=== PATIENT | male | born 1955 | race Caucasian/White ===

== ENCOUNTER 2016-10-29 05:01 | Observation (INO) | payer OTHER ==
--- NOTE | ~2016-10-29 | HP ---
History And Physical [address] [place]. [address] NAME: CATHERINE PINEDA : 57 STATUS : ADM Ariadne PAT#: [id number] AGE: 61 ADM/REG DATE : 10/29/16 MR#: [id number] REPORT SERV DATE: 10/29/16 DICTATED BY: RAJANI WU DATE: 10/29/16 REPORT STATUS : Draft TRANSCRIBED BY: MODItzel DATE: 10/29/16 DATE OF ADMISSION: 10/29/2016 PAIN SPECIALIST: Jose Alberto Chavez M.D. CHIEF COMPLAINT: Dyspnea on exertion and chest pain. HISTORY OF PRESENT ILLNESS: This is a 61-year-old male with cardiac risk factors of hypertension, hyperlipidemia, and type 2 diabetes mellitus, who states a couple of days history of increased shortness of breath with activities such as walking. This is also accompanied with chest tightness. Chest tightness will develop while he is walking or shortly thereafter with radiation to the left shoulder. Yesterday, he states worsening shortness of breath with his regular activities as well as onset of chest tightness in the afternoon. When this did not resolve, he came to the Emergency Department early this morning around 0430 hours. He was given a full dose aspirin and some Percocet for his chronic back pain. His chest tightness has since resolved. The patient denies any recent fever, cough, or chills. Denies PND or orthopnea. He does admit to snoring and not sleeping well at night. Chronic mild edema to the bilateral lower extremity for several years. The patient also has chronic back pain limiting his activities, although he does have a recumbent bicycle that he has not been using regularly. HOME MEDICATIONS: Xanax 0.5 q.i.d. p.r.n., Zetia 10 daily, Neurontin 800 one tablet up to six times a day as needed, lisinopril 40 daily, Glucophage 1000 mg b.i.d., and Endocet 10/325 t.i.d. p.r.n. ALLERGIES: NO KNOWN DRUG ALLERGIES. PAST MEDICAL HISTORY: 1. Hypertension. 2. Mixed hyperlipidemia. 3. Fatty liver disease. 4. Anxiety. 5. Degenerative disk disease and bilateral lower extremity neuropathy. 6. Morbid obesity. 7. Type 2 diabetes mellitus. PAST SURGICAL HISTORY: 1. Cholecystectomy in 1990. 2. Right total knee replaced in 2000. 3. Right femur ORIF in 1978. SOCIAL HISTORY: The patient is . 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 He smoked approximately five years as a teenager. Denies alcohol or illicit drug use. FAMILY HISTORY: Father with coronary artery disease, at age 90. Mother with diabetes. History And Physical [address] [address] NAME: CATHERINE PINEDA : 57 STATUS : ADM Ariadne PAT#: [id number] AGE: 61 ADM/REG DATE : 10/29/16 MR#: [id number] REPORT SERV DATE: 10/29/16 DICTATED BY: RAJANI WU DATE: 10/29/16 REPORT STATUS : Draft TRANSCRIBED BY: ABHINAV DATE: 10/29/16 No premature cardiovascular disease among his first-degree relatives. REVIEW OF SYSTEMS: Negative except as indicated above. PHYSICAL EXAMINATION: VITAL SIGNS: Blood pressure 150/79, heart rate 50 to 60, temperature 97.7, and pulse oximetry 95% on room air. BMI of 41.4. GENERAL: Well-developed, well-nourished, in no acute distress. HEENT: Anicteric. Normal EOM. Head normocephalic. PERRLA, no xanthelasma. NECK: Supple. No JVD. Carotids normal without bruits. LUNGS: Clear to auscultation bilaterally anterior and posterior. Respirations even and unlabored. CARDIAC: S1, S2 regular rate and rhythm. No murmurs, rubs, or gallops. No chest wall tenderness. ABDOMEN: Normal bowel sounds. Soft and nontender to palpation. No masses or organomegaly. EXTREMITIES: 1+ edema to the bilateral lower extremities. SKIN: Warm and dry. Normal turgor. No pallor or cyanosis. MUSCULOSKELETAL: Moving all extremities x4. Normal muscle strength. NEURO/PSYCH: Alert and oriented with appropriate affect. LABORATORY DATA: White blood count 7.3, hemoglobin 14.3, and hematocrit 42.0. D-dimer 0.40. Sodium 142, potassium 4.1, BUN 14, and creatinine 0.8. Troponin less than 0.02. Chest x- ray shows shallow inspiration, but no acute cardiopulmonary processes. EKG interpreted by myself indicates normal sinus rhythm with interventricular conduction delay and left axis deviation. ASSESSMENT/PLAN: 1. Dyspnea on exertion in a 61-year-old male with a negative D-dimer and normal chest x- ray. No symptoms of cough and no signs of fluid overload on examination. Consider possible anginal equivalent versus exercise intolerance in this gentleman who is morbidly obese. 2. Midsternal chest pain, seems to have an exertional component. Initial troponin is negative as well as EKG. Cardiac risk factors include hypertension, hyperlipidemia, type 2 diabetes mellitus. Recommend a cardiac PET stress test today first to differentiate if any ischemia. This will be obtained if second troponin is negative. 3. Type 2 diabetes mellitus, on metformin. Element of neuropathy as well with his diabetes. We will hold his metformin while here, institute level 1 sliding scale insulin protocol. Reinforce diabetic diet and weight loss. 4. Hypertension with borderline elevated blood pressures. We will continue to monitor. Continue home medications. 5. Mixed hyperlipidemia. The patient has reportedly not on a statin secondary to history of fatty liver disease. We will continue Zetia. 6. Morbid obesity with a BMI of 41. Counseled the patient on daily exercise as well as dietary changes. Also, consider outpatient sleep study through his primary care physician. History And Physical [address] [place]. [address] NAME: CATHERINE PINEDA : 57 STATUS : ADM Ariadne PAT#: [id number] AGE: 61 ADM/REG DATE : 10/29/16 MR#: [id number] REPORT SERV DATE: 10/29/16 DICTATED BY: RAJANI WU DATE: 10/29/16 REPORT STATUS : Draft TRANSCRIBED BY: ABHINAV DATE: 10/29/16 FLY/ABHINAV Rajani Wu NP / [id number] CC: Lisa Swain, MSN, DYE CAN OPERATOR-BC Consuelo Stone M.D.
[~2016-10-29 05:01] MED LIST: ASAB PO; COQ-1010 MG OR; DURA50 TOP; L20 PO; NEUR800 PO; OXYCOD PO; PRIN10 PO; VITAMIN D1000 UNI1 PO; VITE PO; X5 PO
[2016-10-29 05:11] LABS: BASOPHILS 0.3 %; BASOPHILS ABSOLUTE 0.02 10/3/uL (0.0-0.16); EOSINOPHILS 1.2 %; EOSINOPHILS ABSOLUTE 0.09 10/3/uL (0.0-0.53); HEMOGLOBIN 14.3 g/dL (13.6-17.8); IMMATURE GRANULOCYTES 0.3 %; IMMATURE GRANULOCYTES ABSOLUTE 0.02 10/3/uL (0.0-0.11); LYMPHOCYTES 30.9 %; LYMPHOCYTES ABSOLUTE 2.24 10/3/uL (0.67-4.30); MANUAL DIFF NO %; MEAN CORPUSCULAR HEMOGLOB 29.2 pg (26.0-34.0); MEAN CORPUSCULAR VOLUME 85.7 fL (80-100); MEAN PLATELET VOLUME 8.6 fL (9.2-13.0); MONOCYTES 6.7 %; MONOCYTES ABSOLUTE 0.49 10/3/uL (0.21-1.20); NEUTROPHILS 60.6 %; PLATELET COUNT 305 10/3/uL (150-400); WHITE BLOOD CELLS 7.3 10/3/uL (4.5-10.5)
[2016-10-29 05:18] LABS: PARTIAL THROMBO TIME 31.8 SEC (22.5-37.2); PROTIME (NOT ORD) 13.2 SEC (12.0-14.5)
[2016-10-29 05:27] LABS: BUN (BLOOD UREA NITROGEN) 14 MG/DL (6-23); CALCIUM, SERUM 9.2 MG/DL (8.5-10.4); CHEST PAIN PROFILE TAT 0 Hrs 20 Mins; CHLORIDE, SERUM 108 MMOL/L (96-112); CO2 (CARBON DIOXIDE) 27 MMOL/L (24-34); CREATININE 0.82 MG/DL (0.70-1.30); GFR AFRICAN AMERICAN 111 ML/MIN (>=60); GFR NON AFRICAN AMERICAN 96 ML/MIN (>=60); GLUCOSE, SERUM 145 MG/DL (60-99); POTASSIUM, SERUM 4.1 MMOL/L (3.5-5.3); SODIUM, SERUM 142 MMOL/L (135-148); TROPONIN I <0.02 NG/ML (<0.05)
[2016-10-29] MEDS ORDERED: LISINOPRIL40 MG PO (05:57)
[2016-10-29] MEDS ORDERED: ZETIA PO ×2 (05:58→16:13)
[2016-10-29] MEDS ORDERED: GLUCOPHAGE1000 MG PO (05:59)
[2016-10-29] MEDS ORDERED: PERCOCET 10/3251 TAB PO (06:00)
[2016-10-29] MEDS ORDERED: NEUR800 PO (06:01)
[2016-10-29] MEDS ORDERED: X5 PO (06:02)
[2016-10-29] MEDS ORDERED: AMB10 PO (16:13)
[2016-10-29] MEDS ORDERED: VISINE-A EYE AL15 ML OPH (16:14)
== END 2016-10-29 17:29 | disposition home or self-care (01) ==
LOC: ER 05:01 → CDU1 06:08 → CDU2 06:22
PROVIDERS: Nurse Practitioner
DX: R06.00 Dyspnea, unspecified (principal); R07.89 Other chest pain; I10 Essential (primary) hypertension; E78.2 Mixed hyperlipidemia; E11.40 Type 2 diabetes mellitus with diabetic neuropathy, unspecified; K76.0 Fatty (change of) liver, not elsewhere classified; F41.9 Anxiety disorder, unspecified; E66.01 Morbid (severe) obesity due to excess calories; Z68.41 Body mass index [BMI] 40.0-44.9, adult; Z90.49 Acquired absence of other specified parts of digestive tract; Z96.651 Presence of right artificial knee joint; Z98.890 Other specified postprocedural states; Z87.891 Personal history of nicotine dependence; Z82.49 Family history of ischemic heart disease and other diseases of the circulatory system; Z83.3 Family history of diabetes mellitus; Z79.84 Long term (current) use of oral hypoglycemic drugs; Z79.899 Other long term (current) drug therapy
CPT/HCPCS: 71010; 78492; 80048; 82962; 83735; 83880; 84484; 85025; 85379; 85610; 85730; 93005; 93017; 99285; A9270-GY; A9555; G0378; J2785